=== PATIENT | female | born 1935 | race Caucasian/White ===

== ENCOUNTER 2016-07-09 13:50 | Emergency (ER) ==
[2016-07-09 14:09] VITALS: BP 150/68; TEMP 97.9; BMI 27.2
--- NOTE | 2016-07-09 14:39 | DI ---
Exam: Four views right knee. linical indication: Right knee pain. Findings: There is no right knee effusion. There are no fractures, dislocations or other significant bony abnormalities. Impression: Negative radiographs of the right knee.
--- NOTE | 2016-07-09 14:42 | DI ---
EXAM: Right shoulder, three views. HISTORY: Right shoulder pain. COMPARISON: None. FINDINGS: Internal and external and axillary views of the right shoulder. Surgical clips are seen i n the left apex. There are no acute or healing fractures. There is no dislocation. There are no l ytic or blastic lesions. No significant degenerative changes are seen. Soft tissues are normal. Th e visualized portion of the right lung and right ribs are normal. IMPRESSION: Normal right shoulder.
--- NOTE | 2016-07-09 14:44 | DI ---
Exam: Three-view right hand. Date: 07/09/2016. Comparison: None. HISTORY: Pain. FINDINGS: The soft tissues are within normal limits. There is mild osteopenia. There is an old he aled deformity of the distal radial metaphysis with an old ununited ulnar styloid process. There is loss of joint space in the radiocarpal joint. There is loss of joint space with degenerative spurr ing between the scaphoid and trapezium and between the trapezium and base of the first metacarpal. There is a small erosion on the radial margin of the head of the first metacarpal with minimal scler osis. There is minimal osteophytic spurring on the head of the second metacarpal. There is loss of joint space with osteophytic spurring in the proximal interphalangeal joints and more pronounced in the distal interphalangeal joints where there is apparent ankylosis of the fifth distal interphalan geal joint. No fracture or dislocation is identified. Impression: No acute findings. There are multi joint degenerative changes of the wrist and hand th at are most suggestive of osteoarthritis. Old healed distal radial fracture with chronic avulsion of the ulnar styloid process. Osteopenia.
--- NOTE | 2016-07-09 14:46 | DI ---
Exam: Two views right tibia and fibula. Clinical indication: Right leg pain. Findings: There is no right knee or ankle effusion. There are no fractures, dislocations or other significant bony abnormality. There is diffuse soft tissue swelling/edema. There are dystrophic soft tissue calcification within t he anterior right lower extremity subcutaneous fat. Impression: Negative radiographs of the right tibia and fibula.
--- NOTE | 2016-07-09 14:46 | DI ---
Exam: Three-view right wrist. Date: 07/09/2016. Comparison: None. HISTORY: Pain. FINDINGS: The soft tissues are within normal limits. There is diffuse osteopenia. There is an old healed deformity of the distal radial metaphysis with an old avulsion of the ulnar styloid process. There is loss of joint space at the radiocarpal joint with dystrophic calcification along the radi al margin. There is sclerosis and loss of joint space between the trapezium and scaphoid and betwee n the trapezium and base of the first metacarpal. No acute fractures are observed. Impression: No acute findings in the right wrist. There is an old healed deformity of the distal r adial metaphysis with an old avulsion of the ulnar styloid process. There are degenerative changes throughout the wrist that most compatible with osteoarthritis. Osteopenia.
--- NOTE | 2016-07-09 14:46 | DI ---
Exam: Two-view right humerus. Date: 07/09/2016. Comparison: None. HISTORY: Pain. FINDINGS: The soft tissues are within normal limits. There is diffuse osteopenia. The humeral head is seated in the glenoid fossa. Limited views of the elbow and shoulder appear normal. Impression: No acute osseous abnormality in the right humerus. Osteopenia.
--- NOTE | 2016-07-09 14:46 | DI ---
EXAM: Left knee, four views. HISTORY: Pain. COMPARISON: None. FINDINGS: AP, notch, sunrise and lateral views of the left knee. There are no acute or healing frac tures. There are no lytic or blastic lesions. Soft tissue edema is seen throughout the lower leg. There is no joint effusion. Joint narrowing and osteophyte formation is seen in all three compartme nts. IMPRESSION: 1. No acute fracture. 2. Mild osteoarthritis.
--- NOTE | 2016-07-09 14:47 | DI ---
Exam: Left lower leg, two view. HISTORY: Leg pain. Balloon balloon the C COMPARISON: None. FINDINGS: AP and lateral views of the left tibia and fibula . There are no acute or healing fractu res. There are no lytic or blastic lesions. Soft tissue edema is seen. Joint narrowing and osteophy te formation is seen in the knee and ankle. IMPRESSION: 1. No acute fractures. 2. Osteoarthritis. 3. Soft tissue edema
--- NOTE | 2016-07-09 15:04 | CT ---
Exam: CT pelvis without IV contrast. Clinical indication: Pelvic pain. TECHNIQUE: Axial unenhanced CT images through the bony pelvis were obtained followed by coronal and sagittal reformats. Findings: The visualized portions of the proximal bilateral femurs are intact. The bilateral hip joints are u nremarkable. The visualized bony structures involving the pelvis are intact without fracture. There is mild bilateral sacroiliac joint degenerative changes. The visualized portions lower lumbar spine demonstrate a lumbar scoliosis convex right. There is al so a grade 1 anterolisthesis of presumed L4 on L5 of approximately 0.8 cm secondary to degenerative changes. At the L3-L4 level there is a large posterior disc osteophyte complex associate with facet degenerat melyssa changes and probable bilateral neural foraminal narrowing and spinal stenosis. At the L5 S1 level note is again made of the anterolisthesis associate with bilateral facet and unco vertebral degenerative changes, causing mild right and moderate left neural foraminal narrowing and spinal stenosis. At the L5 S1 level there is a posterior disc osteophyte complex associate with bilateral facet hyper trophic degenerative changes, causing at least mild to moderate bilateral neural foraminal narrowing . There is extensive aortoiliac atherosclerotic vascular calcifications. There is sigmoid diverticulosis. The remainder of the visualized soft tissues are unremarkable. Impression: 1. No acute pelvic fracture. 2. Lumbar scoliosis convex right. 3. Anterolisthesis of L4 on L5 secondary to degenerative changes. 4. Lower lumbar degenerative disc and facet disease with spinal stenosis and neural foraminal narro wing, as described above on the level by level basis. 5. Sigmoid diverticulosis. 6. Extensive aortoiliac atherosclerotic vascular calcifications.
--- NOTE | 2016-07-09 15:44 | ED.PDOC ---
General ED Provider: Dr. WANDY MORTENSEN Chief Complaint: Fall Stated Complaint: fall Time Seen by Physician: 14:00 Mode of Arrival: Walk-In Information Source: Patient, Family Exam Limitations: No limitations Primary Care Provider: YESSICA HARRIS Nursing and Triage Documentation Reviewed and Agree: Yes Trauma/Injury Complaint Exam - Trauma Complaint/Exam Location of Pain or Injury: Reports: RUE ( shoulder humerous ), RLE, LLE (knee right left ) Mechanism of Injury: Reports: Fall Onset/Duration: today Symptoms Are: Still present Timing of Treatment: Immediate Initial Severity: Moderate Current Severity: Moderate Character: Reports: Aching Aggravating: Reports: Movement Alleviating: Reports: None Associated Signs and Symptoms: Denies: LOC, Confusion, Memory loss, Lethargy, Vomiting, Bleeding, Bruising, Swelling, Extremity disuse, Painful respiration, Hoarseness, Dysphagia, Hemoptysis, Significant blood loss Related History: Reports: Similar episode Nexus Low Risk Criteria: No post-midline CS tender, No evidence of intoxicat., No Altered LOC, No focal neuro deficit, No distracting injuries Immobilization Removed Post Exam: No Glascow Coma Scale (see protocol): 15 Compartment Syndrome Risk Factors: Present: Pain Differential Diagnoses: Abrasion, Sprain, Strain, Other (close head injury) Review of Systems - Review Of Systems Constitutional: Reports: No symptoms Eyes: Reports: No symptoms Ears, Nose, Mouth, Throat: Reports: No symptoms Respiratory: Reports: No symptoms Cardiac: Reports: No symptoms GI: Reports: No symptoms : Reports: No symptoms Musculoskeletal: Reports: Joint pain Skin: Reports: No symptoms Neurological: Reports: No symptoms Endocrine: Reports: No symptoms Hematologic/Lymphatic: Reports: No symptoms All Other Systems: Reviewed and Negative Past Medical History - Past Medical History Previously Healthy: No Endocrine: Reports: None Cardiovascular: Reports: None Respiratory: Reports: None Hematological: Reports: None Gastrointestinal: Reports: None Genitourinary: Reports: Kidney stones Neuro/Psych: Reports: Dementia Musculoskeletal: Reports: None Cancer: Reports: None Last Menstrual Period: hysterectomy - Surgical History General Surgical History: Reports: Hysterectomy - Family History Family History: Reports: Unknown - Social History Smoking Status: Never smoker Hx Substance Use: No Alcohol Screening: None - Immunizations Tetanus Shot up to Date: No Physical Exam - Physical Exam Appearance: Well-appearing, No pain distress, Well-nourished Eyes: GADIEL, EOMI, Conjunctiva clear ENT: Ears normal, Nose normal, Oropharynx normal Respiratory: Airway patent, Breath sounds clear, Breath sounds equal, Respirations nonlabored Cardiovascular: RRR, Pulses normal, No rub, No murmur GI/: Soft, Nontender, No masses, Bowel sounds normal, No Organomegaly Musculoskeletal: Normal strength, ROM intact, No edema, No calf tenderness Skin: Warm, Dry, Normal color Neurological: Sensation intact, Motor intact, Reflexes intact, Cranial nerves intact, Alert, Oriented Psychiatric: Affect appropriate, Mood appropriate Interpretation - Radiology Interpretation Radiology Interpretation By: Radiologist Radiology Results: No acute changes Critical Care Note - Critical Care Note Total Time (mins): 0 Course - Course Orders, Labs, Meds: Orders Category Date Time Status CT PELVIS W/O CONTRAST Stat RADS 07/09/16 14:14 Completed HAND, RIGHT 3 VIEWS Stat RADS 07/09/16 14:00 Completed HUMERUS, RIGHT 2 VIEWS Stat RADS 07/09/16 14:01 Completed KNEE, LEFT 4 VIEWS Stat RADS 07/09/16 13:58 Completed KNEE, RIGHT 4 VIEWS Stat RADS 07/09/16 13:58 Completed SHOULDER, RIGHT MIN 2V Stat RADS 07/09/16 13:58 Completed TIBIA/FIBULA, LEFT 2 VIEWS Stat RADS 07/09/16 14:00 Completed TIBIA/FIBULA, RIGHT 2 VIEW Stat RADS 07/09/16 14:00 Completed WRIST, RIGHT 3 VIEWS Stat RADS 07/09/16 14:00 Completed Vital Signs: Temp Pulse Resp BP Pulse Ox 07/09/16 13:51 97.9 F 79 18 150/68 H 96 Departure - Departure Time of Disposition: 15:43 Disposition: HOME SELF-CARE Discharge Problem: Sprain of right hip Qualifiers: Encounter type: initial encounter Qualifier Code: (S73.101A) Unspecified sprain of right hip, initial encounter Sprain of right shoulder Qualifiers: Encounter type: initial encounter Instructions: Leg Sprain (ED), Knee Sprain (ED), Shoulder Sprain (ED) Condition: Good Pt referred to PMD for follow-up: No Additional Instructions: Please call your Family Physician as soon as possible to schedule a follow-up appointment. Allergies/Adverse Reactions: Allergies Sulfa (Sulfonamide Antibiotics) Adverse Reaction (Verified 07/09/16 14:03) Unknown
== END 2016-07-09 16:06 | disposition home or self-care (01) ==
LOC: ED 13:50
DX: S73.101A Unspecified sprain of right hip, initial encounter (principal); S43.401A Unspecified sprain of right shoulder joint, initial encounter; S83.90XA Sprain of unspecified site of unspecified knee, initial encounter; W19.XXXA Unspecified fall, initial encounter
CPT/HCPCS: 99283